=== PATIENT | female | born 1975 | race Caucasian/White ===

== ENCOUNTER 2016-06-18 09:30 | Emergency (ER) | payer OTHER ==
[~2016-06-18] VITALS: Ht 170.2 cm; Wt 83.2 kg
[~2016-06-18 09:30] MED LIST: ANTIVERT25 MG PO; AUGMENTIN875 MG PO; Aspirin Chewable PO; Buspar PO; CYMBALTA20 MG PO; CYMBALTA60 MG PO; DEPAKOTE500 MG PO; FLEXERIL10 MG PO; HYDROCODON-ACE1 EAC7 PO; KEPPRA XR750 MG PO; KEPPRA1000 MG PO; KEPPRA750 MG PO; Lopressor PO; MOTRIN600 MG PO; MULTIVITAMIN1 EAC2 PO; PROZAC40 MG PO; TESSALON PERLE100 MG PO; TYLENOL REGULA325 MG PO; Tums,OsCal PO; VENTOLIN HFA18 GM IH; celeXA PO
[2016-06-18 10:29] LABS: HEMATOCRIT 40.3 % (36.0-46.0); MCH 29.1 PG (29.0-34.0); MCV 90.8 FL (83-99); MEAN PLAT.VOLUME 10.2 uM^3 (9.5-12.4); PLATELET COUNT 254 K/uL (156-360); RBC DIS.WIDTH-CV 12.3 % (11.8-14.6); RBC DIS.WIDTH-SD 40.5 % (39-53); RED BLOOD COUNT 4.44 M/uL (3.80-5.20); WHITE BLOOD COUNT 5.3 K/uL (4.1-10.2)
[2016-06-18 10:47] LABS: CHLORIDE 104 mEq/L (99-109); GLUCOSE 90 mg/dL (70-99); POTASSIUM 3.8 mEq/L (3.7-5.4); SODIUM 138 mEq/L (136-147)
[2016-06-18 10:49] LABS: ANION GAP 10 MEQ/L (2-14)
[2016-06-18 10:51] LABS: GFR ESTIMATE (CALCULATED) > 59 mL/min/
[2016-06-18 10:52] LABS: UREA NITROGEN (BUN) 9 mg/dL (9-23)
[2016-06-18 10:59] LABS: CREATINE KINASE 93 IU/L (1-294)
[2016-06-18 11:08] LABS: ADD MIUA? YES; BILIRUBIN NEGATIVE; BLOOD NEGATIVE; COLOR YELLOW ((YELLOW)); GLUCOSE (STRIP) NEGATIVE; KETONES NEGATIVE; LEUKOCYTES NEGATIVE; NITRITE POSITIVE; PROTEIN (STRIP) NEGATIVE; SPECIFIC GRAVITY 1.024 (1.000-1.030); UROBILINOGEN 0.2 MG/DL (0.2-1.0)
[2016-06-18 11:19] LABS: BACTERIA 2+ /HPF; EPITHELIAL CELLS 1+ /HPF; MUCUS 2+ /LPF; RED BLOOD CELLS 0-5 /HPF (0-5); UCUL ADDED? NO; WHITE BLOOD CELLS 0-5 /HPF (0-5)
[2016-06-18] MEDS ORDERED: KEFLEX500 MG PO (11:28)
[2016-06-18] MEDS ORDERED: KEPPRA250 MG PO (11:39)
[2016-06-18 12:07] VITALS: BP 110/88
== END 2016-06-18 12:08 | disposition home or self-care (01) ==
LOC: EME 09:30
DX: G40.909 Epilepsy, unspecified, not intractable, without status epilepticus (principal); N39.0 Urinary tract infection, site not specified
CPT/HCPCS: 80048; 80156; 80177 90; 80184; 80185; 81003; 82550; 85027; 99281; 99283

== ENCOUNTER 2016-10-30 14:37 | Emergency (ER) | payer BC, OTHER ==
[~2016-10-30] VITALS: Ht 172.7 cm; Wt 87.0 kg
[~2016-10-30 14:37] MED LIST changes: +KEFLEX500 MG PO; +KEPPRA250 MG PO
[2016-10-30 16:20] LABS: HEMATOCRIT 36.2 % (36.0-46.0); MCH 29.1 PG (29.0-34.0); MCHC 32.6 G/DL (30.0-36.0); MCV 89.4 FL (83-99); MEAN PLAT.VOLUME 9.8 uM^3 (9.5-12.4); PLATELET COUNT 250 K/uL (156-360); RBC DIS.WIDTH-CV 12.2 % (11.8-14.6); RBC DIS.WIDTH-SD 40.3 % (39-53); RED BLOOD COUNT 4.05 M/uL (3.80-5.20); WHITE BLOOD COUNT 7.4 K/uL (4.1-10.2)
[2016-10-30 16:30] LABS: CHLORIDE 106 mEq/L (99-109); POTASSIUM 3.8 mEq/L (3.7-5.4); SODIUM 140 mEq/L (136-147)
[2016-10-30 16:33] LABS: GLUCOSE 75 mg/dL (70-99)
[2016-10-30 16:34] LABS: ANION GAP 9 MEQ/L (2-14)
[2016-10-30 16:35] LABS: TOTAL BILIRUBIN 0.2 mg/dL (0.0-1.0)
[2016-10-30 16:36] LABS: ALKALINE PHOSPHATASE 85 IU/L (3-129); GFR ESTIMATE (CALCULATED) > 59 mL/min/
[2016-10-30 16:37] LABS: UREA NITROGEN (BUN) 12 mg/dL (9-23)
[2016-10-30 16:40] LABS: LIPASE 25 U/L (1.0-51.0)
[2016-10-30 16:43] LABS: TROP-I INTERPRETATION NEGATIVE; TROPONIN-I < 0.01 ng/mL (0.0-0.30)
[2016-10-30 17:14] LABS: ADD MIUA? YES; BILIRUBIN NEGATIVE; BLOOD NEGATIVE; COLOR YELLOW ((YELLOW)); GLUCOSE (STRIP) NEGATIVE; KETONES NEGATIVE; LEUKOCYTES NEGATIVE; NITRITE NEGATIVE; PROTEIN (STRIP) NEGATIVE; SPECIFIC GRAVITY 1.029 (1.000-1.030); UROBILINOGEN 0.2 MG/DL (0.2-1.0)
[2016-10-30 17:32] LABS: EPITHELIAL CELLS 4+ /HPF
[2016-10-30 17:33] LABS: CASTS NONE SEEN /LPF; MUCUS 1+ /LPF
[2016-10-30 17:34] LABS: BACTERIA 3+ /HPF; CALCIUM OXALATE CRYSTALS 1+ /HPF; CRYSTALS PRESENT; RED BLOOD CELLS NONE SEEN /HPF (0-5); UCUL ADDED? YES; WHITE BLOOD CELLS NONE SEEN /HPF (0-5)
[2016-10-30 18:45] LABS: TROP-I INTERPRETATION NEGATIVE; TROPONIN-I < 0.01 ng/mL (0.0-0.30)
[2016-10-30 19:44] VITALS: BP 135/73
== END 2016-10-30 19:46 | disposition home or self-care (01) ==
LOC: EME 14:37
PROVIDERS: Physician Assistant
DX: R07.2 Precordial pain (principal); G40.909 Epilepsy, unspecified, not intractable, without status epilepticus; Z90.710 Acquired absence of both cervix and uterus
CPT/HCPCS: 71020; 80053; 81003; 83690; 84484; 85027; 87086; 93005; 99281; 99285